=== PATIENT | male | born 1955 | race Caucasian/White ===

== ENCOUNTER 2024-06-28 13:50 | Inpatient (IN) | payer MEDICARE ==
[2024-06-28] VITALS (33 sets, daily range): BP systolic 134–194; BP diastolic 66–137
[~2024-06-28] VITALS: Ht 180.3 cm; Wt 108.0 kg
[2024-06-28 14:22] LABS: BASO% 0.7 % (0-3); EOS% 2.5 % (0-8); HEMATOCRIT 44.2 % (39.0-50.0); HEMOGLOBIN 14.9 g/dl (14.0-18.0); IMMATURE GRANULOCYTES 0.1 % (0.0-5.0); LYMPH% 26.5 % (15-41); MEAN CELL VOLUME 85.7 fL CALC (80.0-100.0); MEAN CORPUSCULAR HGB 28.9 pG CALC (26.0-32.0); MEAN CORPUSCULAR HGB CONC 33.7 g/dL CAL (32.0-36.0); MONO% 6.7 % (2-13); NEUT# 5.43 thou/uL (1.82-7.42); NEUT% 63.5 % (42-76); RED BLOOD COUNT 5.16 mill/uL (4.70-6.10); RED CELL DISTRI WIDTH 12.9 % (11.5-15.5)
[2024-06-28 14:42] LABS: ALBUMIN 4.6 g/dL (3.2-5.0); ALKALINE PHOSPHATASE 82 u/l (38-126); ANION GAP 13 (6-22 (CALC)); BILIRUBIN, TOTAL 0.6 mg/dL (0.2-1.3); BUN 8 mg/dL (8-23); BUN/CREATININE RATIO 10 (12-20 (CALC)); CARBON DIOXIDE 28 mmol/l (22-30); CHLORIDE 103 mmol/l (95-108); CREATININE 0.8 mg/dL (0.7-1.3); ESTIMATED GFR 96 ML/MIN (>=90 (CALC)); POTASSIUM 4.1 mmol/l (3.5-5.1); SGOT/AST 46 u/l (19-48); SODIUM 140 mmol/l (137-146); TOTAL PROTEIN 8.3 g/dL (6.3-8.2)
[2024-06-28 14:44] LABS: CALCULATED LDLCHOLESTEROL 148 mg/dL (62-129 (CALC)); HDL CHOLESTEROL 50 mg/dL (39.0-59.0); TOTAL CHOLESTEROL 250 mg/dl (0-199); TOTAL TRIGLYCERIDES 258 mg/dl (0-149); VLDL CHOLESTROL 52 mg/dl (4-45 (CALC))
[2024-06-28] MEDS ORDERED: LABETALOL HCL 100 MG/20 ML VIAL IV ONE (14:45)
[2024-06-28 14:51] LABS: PROTHROMBIN TIME 10.4 SECONDS (9.0-12.5)
[2024-06-28 16:12] LABS: URINE BILIRUBIN - DIPSTICK Negative (NEGATIVE); URINE BLOOD DIPSTICK Negative (NEGATIVE); URINE COLOR Yellow; URINE GLUCOSE - DIPSTICK Negative (NEGATIVE); URINE KETONE Negative (NEGATIVE); URINE LEUK ESTERASE Negative (NEGATIVE); URINE NITRITE - DIPSTICK Negative (Negative); URINE PH 5.5 (4.5-8.0); URINE PROTEIN - DIPSTICK Negative (NEG-TRACE); URINE SPECIFIC GRAVITY <=1.005; URINE UROBILINOGEN - DIPSTICK 0.2 E.U./dL (0.2)
[2024-06-28] MEDS ORDERED: MAGNESIUM HYDROXIDE 30 ML UDC PO PRN (16:25)
[2024-06-28] MEDS ORDERED: ACETAMINOPHEN 325 MG/TAB PO PRN (16:25)
[2024-06-28] MEDS ORDERED: ASPIRIN EC 81 MG/TAB PO SCH (17:00)
[2024-06-28] MEDS ORDERED: ENOXAPARIN SODIUM 40 MG/0.4 ML SYR SC SCH (21:00)
[2024-06-28] MEDS ORDERED: ATORVASTATIN CALCIUM 40 MG/TAB PO SCH (21:00)
[2024-06-29] VITALS (12 sets, daily range): BP systolic 129–158; BP diastolic 70–90
[2024-06-29 05:53] LABS: BASO% 0.7 % (0-3); HEMATOCRIT 38.7 % (39.0-50.0); HEMOGLOBIN 13.3 g/dl (14.0-18.0); IMMATURE GRANULOCYTES 0.2 % (0.0-5.0); LYMPH% 30.6 % (15-41); MEAN CELL VOLUME 87.2 fL CALC (80.0-100.0); MEAN CORPUSCULAR HGB CONC 34.4 g/dL CAL (32.0-36.0); MONO% 8.1 % (2-13); NEUT# 5.13 thou/uL (1.82-7.42); NEUT% 57.4 % (42-76); RED BLOOD COUNT 4.44 mill/uL (4.70-6.10)
[2024-06-29 06:28] LABS: BILIRUBIN, TOTAL 0.5 mg/dL (0.2-1.3); CREATININE 0.8 mg/dL (0.7-1.3); POTASSIUM 3.8 mmol/l (3.5-5.1); TOTAL PROTEIN 6.7 g/dL (6.3-8.2)
[2024-06-29 06:35] LABS: ALBUMIN 3.6 g/dL (3.2-5.0)
[2024-06-29] MEDS ORDERED: CLOPIDOGREL BISULFATE 75 MG/TAB TAB PO SCH (15:00)
[2024-06-30] VITALS (8 sets, daily range): BP systolic 136–207; BP diastolic 71–90
[2024-06-30 05:27] LABS: BASO% 0.5 % (0-3); EOS% 3.6 % (0-8); HEMATOCRIT 42.2 % (39.0-50.0); HEMOGLOBIN 14.3 g/dl (14.0-18.0); IMMATURE GRANULOCYTES 0.3 % (0.0-5.0); LYMPH% 35.9 % (15-41); MEAN CELL VOLUME 87.6 fL CALC (80.0-100.0); MEAN CORPUSCULAR HGB 29.7 pG CALC (26.0-32.0); MEAN CORPUSCULAR HGB CONC 33.9 g/dL CAL (32.0-36.0); MONO% 7.2 % (2-13); NEUT# 4.82 thou/uL (1.82-7.42); NEUT% 52.5 % (42-76); RED BLOOD COUNT 4.82 mill/uL (4.70-6.10)
[2024-06-30 05:43] LABS: ALBUMIN 3.8 g/dL (3.2-5.0); BILIRUBIN, TOTAL 0.5 mg/dL (0.2-1.3); CREATININE 0.9 mg/dL (0.7-1.3); POTASSIUM 3.9 mmol/l (3.5-5.1)
[2024-06-30] MEDS ORDERED: hydrALAZINE HCL 20 MG/ML VIAL(1 ML) IV PRN (21:50)
[2024-07-01 00:30] VITALS: BP 160/82
[2024-07-01 04:25] VITALS: BP 154/90
[2024-07-01 05:49] LABS: BASO% 0.5 % (0-3); EOS% 2.8 % (0-8); HEMATOCRIT 42.2 % (39.0-50.0); HEMOGLOBIN 14.2 g/dl (14.0-18.0); IMMATURE GRANULOCYTES 0.2 % (0.0-5.0); LYMPH% 23.8 % (15-41); MEAN CELL VOLUME 87.4 fL CALC (80.0-100.0); MEAN CORPUSCULAR HGB 29.4 pG CALC (26.0-32.0); MEAN CORPUSCULAR HGB CONC 33.6 g/dL CAL (32.0-36.0); MONO% 7.6 % (2-13); NEUT# 6.77 thou/uL (1.82-7.42); NEUT% 65.1 % (42-76); RED BLOOD COUNT 4.83 mill/uL (4.70-6.10); RED CELL DISTRI WIDTH 12.9 % (11.5-15.5)
[2024-07-01 05:51] LABS: ALBUMIN 3.7 g/dL (3.2-5.0); BILIRUBIN, TOTAL 0.7 mg/dL (0.2-1.3); CREATININE 0.8 mg/dL (0.7-1.3); MAGNESIUM 1.8 mg/dL (1.6-2.3); TOTAL PROTEIN 6.8 g/dL (6.3-8.2)
[2024-07-01 06:16] VITALS: BP 149/81
[2024-07-01 08:15] VITALS: BP 149/81
[2024-07-01 08:48] VITALS: BP 149/81
[2024-07-01] MEDS ORDERED: LOSARTAN Potassium 50 MG/TAB PO SCH (09:00)
[2024-07-01] MEDS ORDERED: PLAVIX75 MG PO (10:01)
[2024-07-01] MEDS ORDERED: ATORVASTATIN CA40 MG PO (10:01)
[2024-07-01] MEDS ORDERED: LOSARTAN POTASS50 MG PO (10:01)
[2024-07-01] MEDS ORDERED: ADLT ASA LOW81 MG PO (10:02)
== END 2024-07-01 10:42 | disposition home or self-care (01) | DRG 66 ==
LOC: ED 13:50 → ED-I 15:10 → ED 16:14 → MS2 16:15
PROVIDERS: Family Medicine; Nurse Practitioner Family; ADMIT Internal Medicine; ATTEND Internal Medicine
DX: I63.521 Cerebral infarction due to unspecified occlusion or stenosis of right anterior cerebral artery (principal); I63.531 Cerebral infarction due to unspecified occlusion or stenosis of right posterior cerebral artery; H53.8 Other visual disturbances; R42 Dizziness and giddiness; R51.9 Headache, unspecified; R29.700 NIHSS score 0; I10 Essential (primary) hypertension; E78.5 Hyperlipidemia, unspecified; I08.3 Combined rheumatic disorders of mitral, aortic and tricuspid valves; Z87.891 Personal history of nicotine dependence
CPT/HCPCS: J1650; J1920; Q9967